=== PATIENT | female | born 1980 | race Caucasian/White ===

== ENCOUNTER 2016-07-22 01:07 | Emergency (ER) | payer OTHER ==
[~2016-07-22] VITALS: Ht 157.5 cm; Wt 55.7 kg
[2016-07-22 01:10] VITALS: Ht 157.5 cm; Wt 55.7 kg
[2016-07-22] MEDS ORDERED: MECL12.574 PO (01:50)
--- NOTE | 2016-07-22 01:51 | ERD ---
ER Documentation Chief Complaint Date/Time DATE: 07/22/16 TIME: 01:48 Chief Complaint palpitations/dizziness x 2 hours HPI 35-year-old female presents here in emergency department for complaints of palpitations, on and off dizziness and lightheadedness for the last 4 days, patient was seen at another emergency department 3 days ago, had a full workup then, had a CT scan of the brain, laboratory testing, was told to be normal. Patient was given a prescription for meclizine, was told to have vertigo, patient verbalized that they did not do an EKG her check her heart. Patient continues to have palpitations, on and off, is complaining of on and off chest pain, sharp pain, 4/10 scale, complaining of palpitations. Patient complaints of dizziness. Patient denies any shortness of breath or wheezing. Patient denies any cough. Patient denies any fever or chills. ROS All systems reviewed and are negative except as per history of present illness. Medications Home Meds Active Scripts Azithromycin* (Zithromax*) 250 Mg Tablet, 250 MG PO .ZPACK DIRECTED, #6 TAB TAKE 500 MG (2 TABS) THE FIRST DAY THEN 250 MG (1 TAB) DAYS 2-5 Prov:ROSAURA MARQUEZ NP 07/22/16 Reported Medications Meclizine Hcl* (Antivert*) Unknown Strength Tab, PO Q6H Y for DIZZINESS, #20 TAB 07/22/16 Allergies Allergies: Coded Allergies: No Known Drug Allergy (Verified Allergy, Unknown, 04/14/08) PMhx/Soc Medical and Surgical Hx: pt denies Medical Hx, pt denies Surgical Hx FmHx Family History: No coronary disease, No diabetes, No other Physical Exam Vitals Vital Signs Date Time Temp Pulse Resp B/P Pulse Ox O2 Delivery O2 Flow Rate FiO2 07/22/16 04:04 98.0 85 16 99/59 100 Room Air 07/22/16 01:10 96.3 118 20 138/81 100 Physical Exam GENERAL: The patient is well developed and appropriate for usual state of health, in no apparent distress. CHEST: Clear to auscultation bilaterally. There are no rales, wheezes or rhonchi. HEART: Tachycardic rate at 110 bpm with a regular rhythm No murmurs, clicks, rubs or gallops. No S3 or S4. ABDOMEN: Soft, nontender and nondistended. Good bowel sounds. No rebound or guarding. No gross peritonitis. No gross organomegaly or masses. No Fallon sign or McBurney point tenderness. BACK: No midline or flank tenderness. EXTREMITIES: Equal pulses bilaterally. There is no peripheral clubbing, cyanosis or edema. No focal swelling or erythema. Full range of motion. Grossly neurovascularly intact. NEURO: Alert and oriented. Cranial nerves 2-12 intact. Motor strength in all 4 extremities with 5/5 strength. Sensation grossly intact. Normal speech and gait. SKIN: There is no apparent rash or petechia. The skin is warm and dry. HEMATOLOGIC AND LYMPHATIC: There is no evidence of excessive bruising or lymphedema. No gross cervical, axillary, or inguinal lymphadenopathy. Result Diagram: 07/22/1619907/22/16199 Results 24 hrs Laboratory Tests Test 07/22/16 02:00 Alanine Aminotransferase (ALT/SGPT) 41IU/L Albumin 5.0g/dl Albumin/Globulin Ratio 1.56 Alkaline Phosphatase 54IU/L Anion Gap 22 Aspartate Amino Transf (AST/SGOT) 25IU/L Basophils # 0.010^3/ul Basophils % 0.3% Blood Urea Nitrogen 13mg/dl Calcium Level 9.8mg/dl Carbon Dioxide Level 24mmol/L Chloride Level 103mmol/L Creatinine 0.65mg/dl D-Dimer 380.31ng/ml D-Dimer Comment Direct Bilirubin 0.00mg/dl Eosinophils # 0.210^3/ul Eosinophils % 1.9% Free Thyroxine 1.10ng/dl Free Triiodothyronine (T3) pg/mL 4.88pg/ml Globulin 3.20g/dl Glucose Level 134mg/dl Hematocrit 43.0% Hemoglobin 14.3g/dl Indirect Bilirubin 0.2mg/dl Lymphocytes # 2.610^3/ul Lymphocytes % 25.0% Mean Corpuscular Hemoglobin 29.6pg Mean Corpuscular Hemoglobin Concent 33.3g/dl Mean Corpuscular Volume 89.0fl Mean Platelet Volume 10.2fl Monocytes # 0.610^3/ul Monocytes % 5.5% Neutrophils # 6.910^3/ul Neutrophils % 67.1% Nucleated Red Blood Cells # 0.010^3/ul Nucleated Red Blood Cells % 0.0/100WBC Platelet Count 08225^3/UL Potassium Level 3.9mmol/L Red Blood Count 4.8310^6/ul Red Cell Distribution Width 12.2% Sodium Level 145mmol/L Thyroid Stimulating Hormone (TSH) 5.450MIU/L Total Bilirubin 0.2mg/dl Total Protein 8.2g/dl Troponin I < 0.012ng/ml White Blood Count 10.210^3/ul Current Medications Medications (Trade) Dose Ordered Sig/Lis Route PRN Reason Start Time Stop Time Status Last Admin Dose Admin Sodium Chloride (NS) 1,000 ml @ 1,000 mls/hr Q1H ONCE IV 07/22/16 02:00 07/22/16 02:59 DC 07/22/16 01:56 Lorazepam (Ativan) 1 mg ONCE ONCE IV 07/22/16 02:00 07/22/16 02:01 DC 07/22/16 01:56 EKG was done, read by me and is sinus tachycardia 107 bpm, normal axis, there is no ST changes or changes in the EKG that indicates any cardiac emergencies at this time. Patient's EKG was also reviewed by Dr. Arnold. Impression: no acute findings on EKG PROCEDURE: XR Chest. CLINICAL INDICATION: Chest pain. TECHNIQUE: Single frontal chest x-ray. COMPARISON: None. FINDINGS: The cardiomediastinal silhouette is unremarkable. There is small patchy densities in the left mid lung field.. . There is no pleural effusion. There is no pneumothorax. The osseous structures are unremarkable. IMPRESSION: Small patchy infiltrate left mid lung field. RPTAT: HMVK .Alessio Amezquita MD, MD Date Time Electronically viewed and signed by .Alessio Amezquita MD, on 07/22/2016 02:29 .K/ Procedures/[facility] Medical Decision Making: Patient's symptoms then nonspecific at this time, though there was an incidental finding of pneumonia as seen in the x-ray, this will be treated. Patient does admit to be having a lot of stress lately, may be causing the palpitations. Laboratory testing normal at this time, already had a CT scan of the brain which was normal. There is low suspicion for cardiopulmonary emergencies at this time. Patient has low risk factors. EKG is normal, there is no changes in the EKG that indicates cardiac emergencies. Chest X-ray does not show cardiopulmonary emergencies at this time. There is low suspicion for aortic aneurysm, myocardial infarction, pneumothorax, pleural effusion, pulmonary embolism, or any other cardiopulmonary emergencies at this time. Cardiac markers are normal. Patient was given prescription for azithromycin, was advised to see primary care doctor for further evaluation and symptoms, advised to see laborer sawmill specialist for possible Holter monitoring. Patient was advised to avoid caffeine. Patient is advised to return to emergency department for any worsening symptoms. Departure Diagnosis: Primary Impression: Palpitations Additional Impression: Pneumonia Pneumonia type: due to unspecified organism Laterality: left Lung location : unspecified part of lung Qualified Code: J18.9 - Pneumonia of left lung due to infectious organism, unspecified part of lung Condition: Stable Patient Instructions: Palpitations, Pneumonia Additional Instructions: Patient was given prescription for azithromycin, was advised to see primary care doctor for further evaluation and symptoms, advised to see laborer sawmill specialist for possible Holter monitoring. Patient was advised to avoid caffeine. Patient is advised to return to emergency department for any worsening symptoms. ROSAURA MARQUEZ NP Jul 22, 2016 01:50
[2016-07-22] MEDS ORDERED: SOD CHLORIDE 0.9% 1,000 ML IV ONE (02:00)
[2016-07-22] MEDS ORDERED: LORAZEPAM 2 MG INJ IV ONE (02:00)
[2016-07-22 02:29] LABS: ADD SCAN DIFF NO
--- NOTE | 2016-07-22 02:29 | RADRPT ---
PROCEDURE: XR Chest. CLINICAL INDICATION: Chest pain. TECHNIQUE: Single frontal chest x-ray. COMPARISON: None. FINDINGS: The cardiomediastinal silhouette is unremarkable. There is small patchy densities in the left mid l sheyla field.. . There is no pleural effusion. There is no pneumothorax. The osseous structures are unremarkable. IMPRESSION: Small patchy infiltrate left mid lung field. RPTAT: HMVK .Alessio Amezquita MD, MD Date Time Electronically viewed and signed by .Alessio Amezquita MD, on 07/22/2016 02:29 .K/
[2016-07-22 02:34] LABS: BASOPHILS % 0.3 % (0.0-2.0); EOSINOPHILS # 0.2 10^3/ul (0.0-0.5); EOSINOPHILS % 1.9 % (0.0-7.0); HEMOGLOBIN 14.3 g/dl (12.0-16.0); LYMPHOCYTES # 2.6 10^3/ul (0.8-2.9); MEAN CORPUSCULAR HEMOGLOBIN 29.6 pg (29.0-33.0); MEAN CORPUSCULAR HGB CONC 33.3 g/dl (32.0-37.0); MEAN PLATELET VOLUME 10.2 fl (7.4-10.4); MONOCYTE # 0.6 10^3/ul (0.3-0.9); MONOCYTES % 5.5 % (0.0-11.0); NEUTROPHIL # 6.9 10^3/ul (1.6-7.5); NEUTROPHILS % 67.1 % (39.0-77.0); PLATELET COUNT 343 10^3/UL (140-415); RED BLOOD COUNT 4.83 10^6/ul (4.20-5.40); RED CELL DISTRIBUTION WIDTH 12.2 % (11.5-14.5); WHITE BLOOD COUNT 10.2 10^3/ul (4.8-10.8)
[2016-07-22 02:42] LABS: CHLORIDE 103 mmol/L (97-110); POTASSIUM 3.9 mmol/L (3.5-5.1); SODIUM 145 mmol/L (135-144)
[2016-07-22 02:44] LABS: ALBUMIN/GLOBULIN RATIO 1.56; ALKALINE PHOSPHATASE 54 IU/L (42-121); ANION GAP 22 (8-16); ASPARTATE AMINO TRANSFERASE 25 IU/L (15-46); BILIRUBIN,INDIRECT 0.2 mg/dl (0-1.1); BILIRUBIN,TOTAL 0.2 mg/dl (0.2-1.3); CARBON DIOXIDE 24 mmol/L (21-31); CREATININE 0.65 mg/dl (0.44-1.00); TOTAL PROTEIN 8.2 g/dl (6.1-8.1)
[2016-07-22 02:45] LABS: ALANINE AMINOTRANSFERASE 41 IU/L (13-69); BLOOD UREA NITROGEN 13 mg/dl (7-20); CALCIUM 9.8 mg/dl (8.4-10.2); GLUCOSE 134 mg/dl (70-220)
[2016-07-22 02:52] LABS: D-DIMER 380.31 ng/ml (<460)
[2016-07-22 03:20] LABS: FREE T3 4.88 pg/ml (2.77-5.27)
[2016-07-22 03:35] LABS: TROPONIN-I < 0.012 ng/ml (0.00-0.12)
[2016-07-22] MEDS ORDERED: AZIT250T94 PO (03:43)
[2016-07-22 04:04] VITALS: BP 99/59; PULSE 85; RESP 16; TEMP 98
== END 2016-07-22 04:05 | disposition home or self-care (01) ==
LOC: FTE 01:07
DX: R00.2 Palpitations (principal); J18.9 Pneumonia, unspecified organism
CPT/HCPCS: 36415; 71010; 80053; 84439; 84443; 84481; 84484; 85025; 85378; 93005; 96374; 99285; J2060; J7030

== ENCOUNTER 2016-08-03 22:33 | Emergency (ER) | payer OTHER ==
[~2016-08-03] VITALS: Ht 157.5 cm; Wt 56.0 kg
[~2016-08-03 22:33] MED LIST: AZIT250T94 PO; MECL12.574 PO
[2016-08-03 22:42] VITALS: Ht 157.5 cm; Wt 56.0 kg
--- NOTE | 2016-08-04 00:07 | ERD ---
ER Documentation Chief Complaint Date/Time DATE: 08/04/16 TIME: 00:05 Chief Complaint palpitations after drinking coffee at 8 pm HPI 35-year-old female presents here in emergency department for complaint of palpitations on and off for 2 weeks, patient drank coffee tonight, it got worse. Patient got diagnosed to have pneumonia 2 weeks ago, was told to possibly have been causing the palpitations. Patient is supposed to see a [employer] police sergeant specialist, is yet to an appointment. Patient has seen primary care doctor for this. Tonight, palpitation episodes got worse after drinking coffee. Patient denies any chest pain. Patient denies any dizziness. Patient denies any shortness of breath. She wants to make sure pneumonia and didn't get worse. ROS All systems reviewed and are negative except as per history of present illness. Medications Home Meds Active Scripts Azithromycin* (Zithromax*) 250 Mg Tablet, 250 MG PO .ZPACK DIRECTED, #6 TAB TAKE 500 MG (2 TABS) THE FIRST DAY THEN 250 MG (1 TAB) DAYS 2-5 Prov:ROSAURA MARQUEZ NP 07/22/16 Reported Medications Meclizine Hcl* (Antivert*) Unknown Strength Tab, PO Q6H Y for DIZZINESS, #20 TAB 07/22/16 Allergies Allergies: Coded Allergies: No Known Drug Allergy (Verified Allergy, Unknown, 04/14/08) PMhx/Soc History of Surgery: No Anesthesia Reaction: No Hx Neurological Disorder: No Hx Respiratory Disorders: No Hx Cardiac Disorders: No Hx Psychiatric Problems: No Hx Miscellaneous Medical Probl: Yes (VERTIGO) Hx Alcohol Use: No Hx Substance Use: No Hx Tobacco Use: No Smoking Status: Never smoker FmHx Family History: No coronary disease, No diabetes, No other Physical Exam Vitals Vital Signs Date Time Temp Pulse Resp B/P Pulse Ox O2 Delivery O2 Flow Rate FiO2 08/04/16 03:15 78 16 111/75 97 Room Air 08/03/16 22:42 98.4 100 20 147/81 100 Physical Exam GENERAL: The patient is well developed and appropriate for usual state of health, in no apparent distress. CHEST: Clear to auscultation bilaterally. There are no rales, wheezes or rhonchi. HEART: Regular rate and rhythm. No murmurs, clicks, rubs or gallops. No S3 or S4. ABDOMEN: Soft, nontender and nondistended. Good bowel sounds. No rebound or guarding. No gross peritonitis. No gross organomegaly or masses. No Fallon sign or McBurney point tenderness. BACK: No midline or flank tenderness. EXTREMITIES: Equal pulses bilaterally. There is no peripheral clubbing, cyanosis or edema. No focal swelling or erythema. Full range of motion. Grossly neurovascularly intact. NEURO: Alert and oriented. Cranial nerves 2-12 intact. Motor strength in all 4 extremities with 5/5 strength. Sensation grossly intact. Normal speech and gait. SKIN: There is no apparent rash or petechia. The skin is warm and dry. HEMATOLOGIC AND LYMPHATIC: There is no evidence of excessive bruising or lymphedema. No gross cervical, axillary, or inguinal lymphadenopathy. Results 24 hrs Laboratory Tests Test 08/04/16 01:27 Bedside Glucose 102mg/dL EKG was done, read by me and is normal sinus rhythm at a rate of 89, normal axis , there is no ST changes or changes in the EKG that indicates any cardiac emergencies at this time. Patient's EKG was also reviewed by Dr. PAREDES. Impression: no acute findings on EKG PROCEDURE: CHEST - 1 VIEW CLINICAL INDICATION: 35-year-old female with chest pain and palpitations. TECHNIQUE: A single frontal AP semi-erect view of the chest was performed portably. The images were reviewed on a PACS workstation. COMPARISON: Chest x-ray July 22, 2016. FINDINGS: The cardiomediastinal silhouette has a normal appearance. There is a calcified granuloma within the left mid lung zone measuring 7 mm without significant change. There is no evidence for an infiltrate. There is no evidence for congestive heart failure. There is no evidence for pneumothorax. The osseous structures are intact. IMPRESSION: 1. No evidence for active cardiopulmonary disease. 2. Left mid lung zone 7 mm granuloma. .Jimmy Godinez MD, Date Time Electronically viewed and signed by .Jimmy Godinez MD, MD on 08/04/2016 00:58 .M/ CC: ROSAURA MARQUEZ NP Procedures/[facility] Medical Decision Making: Patient symptoms of palpitations nonspecific This time. Can be anxiety related, severe related to coughing. Patient has a granuloma tissue noted in the left mid lung zone, was advised to continue follow -up with primary care doctor and repeat x-ray or CT scan evaluation in the next few months for further evaluation and to ensure that it is not becoming bigger. There is low suspicion for cardiopulmonary emergencies at this time. Patient has low risk factors. EKG is normal, there is no changes in the EKG that indicates cardiac emergencies. Chest X-ray does not show cardiopulmonary emergencies at this time. There is low suspicion for aortic aneurysm, myocardial infarction, pneumothorax, pleural effusion, pulmonary embolism, or any other cardiopulmonary emergencies at this time. Patient advised to see the grain origination specialist. Patient is advised to return to emergency department for any worsening symptoms. Departure Diagnosis: Primary Impression: Palpitations Additional Impression: Lung granuloma Condition: Stable Patient Instructions: Palpitations Additional Instructions: Patient has a granuloma tissue noted in the left mid lung zone, was advised to continue follow-up with primary care doctor and repeat x-ray or CT scan evaluation in the next few months for further evaluation and to ensure that it is not becoming bigger. ROSAURA MARQUEZ NP Aug 04, 2016 00:06
--- NOTE | 2016-08-04 00:59 | RADRPT ---
PROCEDURE: CHEST - 1 VIEW CLINICAL INDICATION: 35-year-old female with chest pain and palpitations. TECHNIQUE: A single frontal AP semi-erect view of the chest was performed portably. The images we re reviewed on a PACS workstation. COMPARISON: Chest x-ray July 22, 2016. FINDINGS: The cardiomediastinal silhouette has a normal appearance. There is a calcified granuloma within the left mid lung zone measuring 7 mm without significant change. There is no evidence for an infiltrate . There is no evidence for congestive heart failure. There is no evidence for pneumothorax. The oss eous structures are intact. IMPRESSION: 1. No evidence for active cardiopulmonary disease. 2. Left mid lung zone 7 mm granuloma. .Jimmy Godinez MD, MD Date Time Electronically viewed and signed by .Jimmy Godinez MD, on 08/04/2016 00:58 .M/
[2016-08-04 03:15] VITALS: BP 111/75; PULSE 78; RESP 16
== END 2016-08-04 03:15 | disposition home or self-care (01) ==
LOC: FTE 22:33
DX: R00.2 Palpitations (principal); J84.10 Pulmonary fibrosis, unspecified
CPT/HCPCS: 71010; 82962